=== PATIENT | female | born 1955 | race Caucasian/White ===

== ENCOUNTER 2017-11-23 03:18 | Emergency (ER) | payer MEDICARE, BC ==
[2017-11-23] MEDS ORDERED: Lorazepam 2 MG/ML VIAL ONE (03:24)
[2017-11-23 03:50] LABS: #Eosinphils 0.1 thou/uL (0.0-0.7); #Lymphocytes 1.2 thou/uL (1.20-3.40); #Monocytes 0.5 thou/uL (0.11-0.59); #Neutrophils 3.4 thou/uL (1.40-6.50); %Basophils 0.4 % (0.0-1.0); %Eosinophils 1.8 % (0.0-10.0); %Lymphocytes 23.5 % (21.0-51.0); %Neutrophils 65.3 % (42.0-75.0); Hemoglobin 12.2 g/dL (12.0-16.0); Mean Corpuscular HGB CONC 31.8 g/dL (32.0-36.0); Mean Corpuscular Hemoglobin 30.1 pg (27.0-31.0); Mean Corpuscular Volume 94.7 fL (78.0-98.0); Mean Platelet Volume 9.2 fL (7.4-10.4); Platelet Count 259 thou/uL (130-400); RBC Distribution Width 12.2 % (11.5-14.5); Red Blood Cell (RBC) Count 4.04 mill/uL (4.20-5.40); White Blood Cell (WBC) Count 5.2 thou/uL (4.8-10.8)
[2017-11-23] MEDS ORDERED: levETIRAcetam In NaCl (Iso-Os) 1,500 MG in Premix Bag 1 BAG IVPB SCH (04:00)
[2017-11-23 04:14] LABS: ALT (SGPT) 18 U/L (8-55); AST (SGOT) 28 U/L (5-34); Albumin 3.6 g/dL (3.4-4.8); Alkaline Phosphatase 74 U/L (40-150); Anion Gap 14 mmol/L (10-20); BUN (Urea Nitrogen) 19 mg/dL (9.8-20.1); Bilirubin, Total 0.7 mg/dL (0.2-1.2); CK (CPK) 99 U/L (29-168); Calc. Creatinine Clearance 0 mL/min (70-130); Calcium 9.3 mg/dL (7.8-10.44); Carbon Dioxide 23 mmol/L (23-31); Chloride 106 mmol/L (98-107); Estimated GFR-MDRD 83; Globulin 2.7 g/dL (2.4-3.5); Glucose 102 mg/dL (80-115); Magnesium 2.1 mg/dL (1.6-2.6); Potassium 3.6 mmol/L (3.5-5.1); Protein, Total 6.3 g/dL (6.0-8.3); Sodium 139 mmol/L (136-145)
[2017-11-23 04:17] LABS: CKMB 2.5 ng/mL (0-6.6); Troponin I Less than 0.010 ng/mL (< 0.028)
[2017-11-23 04:50] LABS: Bilirubin Negative (Negative); Blood, Urine Negative (Negative); Clarity CLEAR (Clear); Glucose, Urine (Dipstick) Negative (Negative); Leukocyte Negative (Negative); Nitrite Negative (Negative); Protein, Urine (Dipstick) Negative (Neg-Trace)
--- NOTE | 2017-11-23 07:50 | RAD ---
AP VIEW OF THE CHEST: INDICATION: History of altered mental status and seizure. COMPARISON: None. FINDINGS: Lungs are clear. Cardiomediastinal silhouette is within normal limits. No acute osseous abnormality is evident. IMPRESSION: No acute abnormality. POS: [facility]
--- NOTE | 2017-11-23 08:33 | CT ---
PRELIMINARY REPORT/[facility]/EMERGENTY AFTER-HOURS PROCEDURE CT Head Without Intravenous Contrast EXAM DATE/TIME: 11/23/2017 3:56 AM CLINICAL HISTORY: Signs and symptoms; Altered mental status/memory loss; Patient HX: Er 9; Patient pr esents for evaluation of possible seizure. Recently taken off ativan. Medical HX of dementia, seizure s. TECHNIQUE: Axial computed tomography images of the head/brain without intravenous contrast. COMPARISON: No relevant prior studies available. FINDINGS: Brain: There is asymmetric prominence of the extra-axial space along the bilateral convexities, left greater than right. There is minimal bilateral periventricular and subcortical white matter hypodensi ty which is nonspecific and can be seen in the setting of chronic microvascular angiopathy. Cordova-whit e matter differentiation is within normal limits. No hemorrhage. Midline shift: 2 mm left to right midline shift. Ventricles: Unremarkable. No ventriculomegaly. Bones/joints: Unremarkable. No acute fracture. Soft tissues: Unremarkable. Vasculature: There is atherosclerotic disease of the internal carotid arteries bilaterally. Sinuses: Unremarkable as visualized. No acute sinusitis. Mastoid air cells: Unremarkable as visualized. No mastoid effusion. IMPRESSION: 1. No acute intracranial or extra-axial abnormality. 2. Asymmetric prominence of the extra axial space along the bilateral convexities, left greater than right. Mild mass effect on the adjacent sulci on the left and 2 mm left to right midline shift. 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 3. Other findings as above. Thank you for allowing us to participate in the care of your patient. Dictated and Authenticated by: Louis Oneil MD 11/23/2017 4:10 AM Central Time ([place] & [place]) FINAL REPORT NONCONTRAST HEAD CT: HISTORY: Possible seizure. COMPARISON: None. FINDINGS/IMPRESSION: This report is in agreement with the preliminary report by [facility]. No acute intracranial process. Ther e is prominence of the extraaxial space along bilateral convexities left, slightly greater than right . 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 POS: [facility]
== END 2017-11-23 07:15 | disposition home or self-care (01) ==
LOC: EDBD 03:18 → ERS 03:18
DX: R56.9 Unspecified convulsions (principal); R45.1 Restlessness and agitation; F03.90 Unspecified dementia, unspecified severity, without behavioral disturbance, psychotic disturbance, mood disturbance, and anxiety; Z79.899 Other long term (current) drug therapy
CPT/HCPCS: 70450; 71045; 81003; 82550; 82553; 82962; 83735; 84484; 87086; 93005; J1953; 36416; 51701; 80053; 84443; 85025; 96361; 96365; 96372; A4353; J2060